=== PATIENT | female | born 1955 | race Caucasian/White ===

== ENCOUNTER 2022-09-21 13:04 | Emergency (ER) | payer OTHER, MEDICAID ==
[~2022-09-21] VITALS: Ht 165.1 cm; Wt 85.0 kg
[~2022-09-21 13:04] MED LIST: ACET-3161 PO; ALEN70TA79 PO; CARI350T28 PO; IBUP-2030 PO; OMEP20TA23 PO; RANI150T7 PO; SYSOS BOTHEYE
[2022-09-21] MEDS ORDERED: ACETAMINOPHEN 325MG TABLET PO ONE (13:30)
[2022-09-21] MEDS ORDERED: ONDANSETRON 4MG ODT PO ONE (13:30)
[2022-09-21 13:55] LABS: BASOPHILS % 0.7 % (0.0-2.0); EOSINOPHILS % 2.5 % (0.0-5.0); HEMATOCRIT. 41.1 % (36.0-48.0); HEMOGLOBIN. 13.9 g/dL (12.0-16.0); LYMPHOCYTES % 15.3 % (20.0-50.0); MEAN CORPUSCULAR HEMOGLOBIN 31.7 pg (28.0-32.0); MEAN CORPUSCULAR VOLUME 93.6 fL (81.0-99.0); MEAN PLATELET VOLUME 9.3 fl (7.4-10.4); MONOCYTES % 6.7 % (2.0-8.0); NEUTROPHILS % 74.8 % (40.0-76.0); PLATELET 271 x1000/uL (130-400); RED BLOOD CELL COUNT 4.38 mill/uL (4.2-5.4); RED CELL DISTRIBUTION WIDTH 13.7 % (11.6-14.6)
[2022-09-21 14:02] LABS: CHLORIDE 109 mEq/L (98-107)
[2022-09-21 14:05] LABS: PROTHROMBIN TIME 10.5 sec (9.6-11.0)
[2022-09-21 14:08] LABS: ETHANOL BLOOD < 10 mg/dL
[2022-09-21 14:13] LABS: CLARITY URINE CLEAR (CLEAR); COLOR URINE YELLOW (YELLOW); KETONES URINE NEGATIVE (NEGATIVE); LEUKOCYTE ESTERASE URINE TRACE (NEGATIVE); NITRITE URINE NEGATIVE (NEGATIVE); OCCULT BLOOD URINE NEGATIVE (NEGATIVE); PH URINE 6.5 (4.5-8.0); PROTEIN URINE NEGATIVE (NEGATIVE); SPECIFIC GRAVITY URINE 1.009 (1.005-1.030); UROBILINOGEN URINE 0.2 E.U./dL (0.2-1.0)
[2022-09-21 15:42] LABS: *AMPHETAMINES SCREEN URINE NEGATIVE (NEGATIVE); *BARBITURATES SCREEN URINE NEGATIVE (NEGATIVE); *BENZODIAZEPINES SCREEN URINE NEGATIVE (NEGATIVE); *COCAINE SCREEN URINE NEGATIVE (NEGATIVE); CANNABINOID URINE SCREEN NEGATIVE (NEGATIVE); METHADONE URINE SCREEN NEGATIVE (NEGATIVE); OPIATES URINE SCREEN NEGATIVE (NEGATIVE); PHENCYCLIDINE URINE SCREEN NEGATIVE (NEGATIVE)
[2022-09-21] MEDS ORDERED: FAMOTIDINE 20MG/2ML VIAL IV STA (15:53)
[2022-09-21] MEDS ORDERED: ONDANSETRON 4MG ODT PO NR (17:30)
[2022-09-21] MEDS ORDERED: ACETAMINOPHEN 325MG TABLET PO NR (17:30)
[2022-09-21] MEDS ORDERED: FAMOTIDINE 20MG/2ML VIAL IV NR (17:30)
[2022-09-21] MEDS ORDERED: DICY10CA88 MT (18:22)
[2022-09-21 18:42] VITALS: BP 148/78
== END 2022-09-21 19:07 | disposition home or self-care (01) ==
LOC: ER 13:04
DX: R10.9 Unspecified abdominal pain (principal); I10 Essential (primary) hypertension; Z79.899 Other long term (current) drug therapy
CPT/HCPCS: 36415; 74176; 80053; 80305; 80320; 81003; 83690; 85025; 85610; 96374; 99285; J3490; Q0162; G0480

== ENCOUNTER 2023-12-21 14:56 | Emergency (ER) | payer MEDICARE, MEDICAID ==
[~2023-12-21] VITALS: Ht 165.1 cm; Wt 79.4 kg
[~2023-12-21 14:56] MED LIST changes: +DICY-18 MT
[2023-12-21 15:04] VITALS: O2SAT 99
[2023-12-21 15:32] LABS: BASOPHILS % 0.5 % (0.0-2.0); EOSINOPHILS % 1.1 % (0.0-5.0); HEMATOCRIT. 39.7 % (36.0-48.0); HEMOGLOBIN. 13.5 g/dL (12.0-16.0); LYMPHOCYTES % 9.9 % (20.0-50.0); MEAN CORPUSCULAR VOLUME 94.2 fL (81.0-99.0); MONOCYTES % 5.7 % (2.0-8.0); NEUTROPHILS % 82.8 % (40.0-76.0); PLATELET 234 x1000/uL (130-400); RED BLOOD CELL COUNT 4.21 mill/uL (4.2-5.4); WHITE BLOOD COUNT 11.5 x1000/uL (4.5-11.0)
[2023-12-21 15:44] LABS: CHLORIDE 109 mEq/L (98-107); POTASSIUM 3.7 mEq/L (3.5-5.1); SODIUM 140 mEq/L (136-145)
[2023-12-21 15:45] LABS: CALCIUM 9.7 mg/dL (8.7-10.4); CARBON DIOXIDE 23 mEq/L (21-32)
[2023-12-21 15:50] LABS: GLUCOSE 100 mg/dL (70-105); UREA NITROGEN BLOOD 14 mg/dL (9-23)
[2023-12-21 15:51] LABS: TROPONIN I HIGH SENSITIVITY < 4 ng/L (3.0-34)
[2023-12-21 15:52] LABS: ALANINE AMINOTRANSFERASE 53 IU/L (10-49); ALBUMIN 4.3 g/dL (3.2-4.8); ASPARTATE AMINOTRANSFERASE 115 IU/L (<34); BILIRUBIN DIRECT 0.2 mg/dL (<=3.0); BILIRUBIN TOTAL 0.8 mg/dL (0.1-1.0)
[2023-12-21] MEDS: FAMOTIDINE 20MG/2ML VIAL IV ONE (16:07)
[2023-12-21] MEDS: MAGNESIUM/ALUMINUM HYDROXIDE/SIMETHICONE 30ML UDC PO ONE (16:07)
[2023-12-21] MEDS: LACTATED RINGERS 1,000 ML IV SCH (16:07)
[2023-12-21] MEDS: ONDANSETRON HCL 4MG/2ML INJ IV ONE (19:09)
[2023-12-21] MEDS: MORPHINE SULFATE 4 MG/ML INJ (FOR IV/IM USE) IV ONE (19:09)
[2023-12-21 19:24] LABS: CLARITY URINE CLEAR (CLEAR); COLOR URINE YELLOW (YELLOW); GLUCOSE URINE NEGATIVE (NEGATIVE); KETONES URINE NEGATIVE (NEGATIVE); LEUKOCYTE ESTERASE URINE NEGATIVE (NEGATIVE); NITRITE URINE NEGATIVE (NEGATIVE); OCCULT BLOOD URINE NEGATIVE (NEGATIVE); PH URINE >=9.0 (4.5-8.0); PROTEIN URINE NEGATIVE (NEGATIVE); SPECIFIC GRAVITY URINE 1.024 (1.005-1.030); UROBILINOGEN URINE 0.2 E.U./dL (0.2-1.0)
[2023-12-21] MEDS ORDERED: FAMO20TA8 MT (21:46)
[2023-12-21 21:58] VITALS: BP 121/55; PULSE 90; RESP 14; TEMP 36.28068; O2SAT 98
[2023-12-21] MEDS ORDERED: IOHEXOL-300 100 ML BOTTLE ONE (23:47)
== END 2023-12-21 22:08 | disposition home or self-care (01) ==
LOC: ER 14:56
DX: R19.7 Diarrhea, unspecified (principal); Z87.19 Personal history of other diseases of the digestive system; Z79.899 Other long term (current) drug therapy
CPT/HCPCS: 99285; 74177; 96361; 96374; 96375; 80076; 80048; 81003; 83690; 85025; 84484; 36415; 93005; Q9967; J3490; J2405; J2270; J7120